=== PATIENT | male | born 1970 | race Caucasian/White ===

== ENCOUNTER 2024-05-16 12:21 | Emergency (ER) | payer OTHER, SELFPAY ==
[2024-05-16 12:32] VITALS: BP 124/95; PULSE 124; RESP 20; TEMP 36.8; O2SAT 97
--- NOTE | 2024-05-16 13:05 | ED_ITS ---
HPI - Extremity Problem General Chief complaint: Extremity Problem,Nontraumatic Stated complaint: Left Arm Pain/Right Shoulder Pain Time Seen by Provider: 05/16/24 13:11 Source: patient and RN notes reviewed Mode of arrival: ambulatory Limitations: no limitations History of Present Illness HPI Narrative: 53-year-old male presents with concern for left elbow pain. He denies injury or trauma. 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 He reports any pain with movement of the elbow, reports pain shoots down his arm. Denies swelling, redness, warmth, bruising. MD Complaint: extremity pain Related Data Home Medications ?Medication ?Instructions ?Recorded ?Confirmed ?Last Taken ?Type metoprolol tartrate 05/16/24 Unknown History omeprazole 05/16/24 Unknown History Allergies Allergy/AdvReac Type Severity Reaction Status Date / Time morphine Allergy Unknown Unknown Verified 05/16/24 12:37 Review of Systems Review of Systems: CONSTITUTIONAL: Denies malaise, chills, sweats, or fever. EYES: Denies visual changes, redness, or discharge. ENT: Denies rhinorrhea, congestion, sinus pain, otalgia and sore throat. CARDIOVASCULAR: Denies chest pain, palpitations, or edema. RESPIRATORY: Denies cough. Denies dyspnea. GASTROINTESTINAL: Denies abdominal pain, nausea, vomiting, diarrhea SKIN: Denies rash or itching. MUSCULOSKELETAL: Reports left elbow pain NEUROLOGIC: Denies headache. All systems reviewed & are unremarkable except as noted in HPI and below PMFSH Comments At time of signature, agree with nursing past medical, surgical, social and family history. There is no relevant family history pertinent to the presenting complaint Exam Narrative: GENERAL: Well-appearing, well-nourished, and in no acute distress. HEAD: Normocephalic, atraumatic. EYES: PERRLA, conjunctivae clear NECK: Supple. CHEST: Speaks in full sentences. No respiratory distress. HEART: Regular rate and rhythm. Normal and equal peripheral pulses. EXTREMITIES: Left upper extremity has normal strength and sensation. Exam limited due to patient cooperation with reported pain. No edema or ecchymosis. Normal sensation with sensitivity to light touch and pain. General elbow tenderness. No open wounds, no skin tenting, no devitalized tissue or atrophy, no trophic changes, no obvious deformity, alignment normal, nearby joints and structures intact. Distal pulses palpable and equal bilaterally, skin warm, dry, pink. Capillary refill less than 3 seconds. SKIN: Warm, dry, no rash. NEURO: Alert and oriented x3. PSYCH: Normal mood and affect Course Course Emergency Course: Patient is aware of diagnosis, understands and agrees to treatment plan. Anticipatory guidance given. Patient agrees to follow-up as directed and is aware of reasons to seek care at the emergency department. Portions of this record may have been created with voice recognition software Level of Care: Express Care Visit Vital Signs Vital signs: Vital Signs Temperature 98.3 F 05/16/24 12:32 Pulse Rate 124 H 05/16/24 12:32 Respiratory Rate 20 05/16/24 12:32 Blood Pressure 124/95 H 05/16/24 12:32 Pulse Oximetry 97 05/16/24 12:32 Oxygen Delivery Room Air 05/16/24 12:32 Temperature 98.3 F 05/16/24 12:32 Pulse Rate 124 H 05/16/24 12:32 Respiratory Rate 20 05/16/24 12:32 Blood Pressure 124/95 H 05/16/24 12:32 Pulse Oximetry 97 05/16/24 12:32 Oxygen Delivery Room Air 05/16/24 12:32 Reviewed. MDM - Extremity (Nontraumatic) MDM Narrative Medical decision making narrative: Patients pain is consistent with musculoskeletal etiology. No signs of neurological or vascular compromise on exam. Compartments and tissues are soft without signs of compartment syndrome. Pain is felt appropriate for further evaluation on an outpatient basis. Lab Data Attestation: I reviewed the patient's lab results. Critical Care Time Critical Care Time Critical Care Time: No Discharge Plan Discharge Clinical Impression: Elbow pain, left Patient Disposition: Home, Self-Care Condition: Stable Instructions: Musculoskeletal Pain (ED) Additional Instructions: Avoid activities that cause pain until the pain subsides. Ice to the area 20-30 minutes 4-6 times a day Elevate above heart Tylenol for lesser pain Ibuprofen regularly for the next 2-3 days for the inflammation Follow up with your primary care provider if the condition is not improving within 1 week. If the condition worsens with numbness, tingling, decrease sensation with weakness seek treatment in the emergency room immediately. Patient Language: Citizen Of [place] Prescriptions: No Action metoprolol tartrate omeprazole Follow-up/Referrals: UNKNOWN,DOCTOR [Primary Care Provider] - Time of Disposition: 13:21
--- OUTSIDE RECORDS SUMMARY | 2024-05-16 13:41 | XMS_ITS | Clinical Summary ---
Author Organization [facility] Address [address] [place] [address] Care Team Providers Care Purler Name Role Phone Niko Montes MD Primary Care Provider [phone] Allergies Active Allergy Reactions Criticality Noted Date Comments Morphine Vomiting 03/20/2018 Medications fluticasone propionate 50 MCG/ACT nasal spray 02/06/2018 Active lidocaine-prilo neil cream 04/28/2017 Active metoprolol tartrate 25 MG tablet 02/06/2018 Active NARCAN 4 MG/0.1ML nasal spray 05/04/2017 Active omeprazole 20 MG capsule 12/01/2017 Active fish oil 1000 MG Cap capsule Take 1,000 mg by mouth 2 (two) times daily. Active cetirizine 10 MG chewable tablet Chew 10 mg by mouth daily. Active atorvastatin 80 MG tablet 06/02/2018 Active methylPREDNISol one, SAE, (MEDROL DOSEPAK) 4 MG tablet 6 TABLETS ON DAY ONE, 5 TABLETS DAY TWO, 4 TABLETS DAY THREE, 3 TABLETS DAY FOUR, 2 TABLETS DAY FIVE, AND 1 TABLET DAY SIX 1 each 10/24/2021 Active Active Problems Problem Noted Date Diagnosed Date Chronic pain 03/20/2018 GERD (gastroesophageal reflux disease) 9 Anxiety 03/20/2018 Depression 03/20/2018 Hypertension 03/20/2018 Chronic bilateral low back pain with right-sided sciatica 03/20/2018 Allergic rhinitis, unspecifi ed seasonality, unspecified trigger 03/20/2018 Chronic tension-type headache, not intractable 0 03/20/2018 Primary osteoarthritis of both knees 03/20/2018 Bilateral carpal tunnel syndrome 03/20/2018 De Quervain's tenosynovitis, right 03/20/2018 Family History Medical History Relation Comments COPD Father Diabetes Father Heart Disease Father COPD Mother Diabetes Mother Relation Status Comments Brother Alive Daughter Alive Father Alive Mother Sister Alive Social History Tobacco Use Types Packs/Day Years Used Date Smoking Tobacco: Never Smokeless Tobacco: Never Alcohol Use Standard Drinks/Week Comments Yes 8.3 (1 standard drink = 0.6 oz p ure alcohol) on the weekend/socially PHQ-2 Answer Date Recorded PHQ-2 Score 6 02/18/2019 Sex and Gender Information Value Date Recorded Sex Assigned at Not on file Legal Sex Male 6:53 PM CDT Gender Identity Not on file Sexual Orientation Not on file Last Filed Vital Signs Vital Sign Reading Time Taken Comments Blood Pressure 143/98 10/24/2021 2:29 PM CDT Pulse 76 10/24/2021 2:29 PM CDT Temperature 36.4 C (97.6 F) 10/24/2021 2:29 PM CDT Respiratory Rate 20 10/24/2021 2:29 PM CDT Oxygen Saturation 99% 10/24/2021 2:29 PM CDT Inhaled Oxygen Concentration - - Weight 82.1 kg (181 lb) 10/24/2021 2:29 PM CDT Height 172.7 cm (5' 8 ) 10/24/2021 2:29 PM CDT Body Mass Index 27.52 10/24/2021 2:29 PM CDT Plan of Treatment Health Maintenance Due Date Last Done Comments Colorectal Cancer Screening Colonoscopy (10 Years) 1972 Annual Physical 09/01/1975 Hepatitis C 1990 DTaP, Tdap and Td Vaccines ( 1 - Tdap) 09/01/1991 Hepatitis B Vaccines (1 of 3 - 19+ 3-dose series) 09/01/1991 Zoster Vaccines (1 of 2) 2022 COVID-19 Vaccine (2023-2 5 season) 2023 Influenza Adult (#1) 2023 Meningococcal B Vaccine Aged Out No l onger eligible based on patient's age to complete this topic Meningococcal Vaccine Aged Out No evan nohemi eligible based on patient's age to complete this topic Pneumococcal Vaccine: Pediat rics (0 to 5 Years) and At-Risk Patients (6 to 64 Years) Aged Out No longer eligible b ased on patient's age to complete this topic RSV Immunizations Under 20 Months Aged Out No longer eligible based on patient's age to complete this topic Insurance [facility] [place] [address] Care Teams Purler Relationship Specialty Start Date End Date Niko Montes MD [address] [facility] [place] [address] PCP - General INTERNAL MEDICINE 10/24/21
--- OUTSIDE RECORDS SUMMARY | 2024-05-16 13:41 | XMS_ITS | Clinical Summary ---
Author Organization [facility] Address [address] [place] [address] Care Team Providers Care Wash Oil Pump Operator Name Role Phone Sam James MD Unavailable [phone] [facility], Sam Hubbard Primary Care Pro vider Allergies Active Allergy Reactions Criticality Noted Date Comments Morphine Vomiting Low Medications cetirizine 10 mg capsule Take 10 mg by mouth daily. Active metoprolol XL (TOPROL-XL) 25 mg 24 hr tablet Take 25 mg by mouth daily. Active fluticasone (FLONASE) 50 mcg/actuation nasal spray Administer 1 spray into each nostril daily. Active atorvastatin (LIPITOR) 80 mg tablet 0 Active omeprazole (PriLOSEC) 40 mg capsule 0 Active aspirin 325 mg enteric coated tabletIndications: Deep Vein Thrombosis Prevention Take 1 tablet (325 mg total) by mouth daily 42 tablet 0 Active ondansetron ODT (ZOFRAN-ODT) 4 mg disintegrating tabletIndications: nausea and vomiting Take 1 tablet (4 mg total) by mouth every 6 (six) hours as needed for nausea or vomiting 20 tablet 2 0 Active scopolamine 1 mg over 3 days patch [address] 1 patch on the skin every third day 4 patch 0 Active senna-docusate (PERICOLACE) 8.6-50 mgIndications:cons tipation Take 2 tablets by mouth 2 (two) times a day 60 tablet 2 0 Active traMADoL (ULTRAM) 50 mg tablet Take 1 tablet (50 mg total) by mouth every 6 (six) hours as needed for pain 40 tablet 0 Active metoprolol tartrate (LOPRESSOR) 25 mg immediate release tablet 0 Active methocarbamoL (ROBAXIN) 500 mg tablet Take 1 tablet (500 mg total) by mouth 4 (four) times a day as needed for muscle spasms 20 tablet 1 Active acetaminophen (TYLENOL) 500 mg tablet Take 2 tablets (1,000 mg total) by mouth every 8 (eight) hours as needed for pain for up to 20 doses 40 tablet 1 Active naproxen (NAPROSYN) 500 mg tablet Take 1 tablet (500 mg total) by mouth 2 (two) times a day with meals 30 tablet 1 Active Active Problems Problem Noted Date Diagnosed Date Carpal tunnel syndrome of right wrist 03/10/2021 Lateral epicondylitis of both elbows 09/01/2020 Arthritis of carpometacarpal (CMC) joint of righ t thumb 09/01/2020 Aftercare following left knee joint replacement surgery 12/20/2019 Allergic rhinitis 03/20/2018 Anxiety 03/20/2018 Chronic bilateral low back pain with right-sided sciatica 03/20/2018 Chronic pain 03/20/2018 Chronic tension-type headache, not intractable 0 03/20/2018 De Quervain's tenosynovitis, right 03/20/2018 Depression 03/20/2018 GERD (gastroesophageal reflux disease) 9 Hypertension 03/20/2018 Primary osteoarthritis of both knees 03/20/2018 Resolved Problems Problem Noted Date Diagnosed Date Resolved Date Primary osteoarthritis of left knee 11/22/2019 12/20/2019 Overview (11/22/2019): Added automatically from request for surgery [id number] Surgical History Surgery Date Site/Laterality Comments APPENDECTOMY LUMBAR FUSION KNEE ARTHROSCOPY JOINT REPLACEMENT 03/14/2019 - 03/13/2020 lt total knee Medical History Medical History Date Comments GERD (gastroesophageal reflux disease) Hypertension Hyperlipidemia Family History Medical History Relation Name Comments No Known Problems Father No Known Problems Mother Relation Name Status Comments Father Mother Social History Tobacco Use Types Packs/Day Years Used Date Smoking Tobacco: Never Smokeless Tobacco: Never Alcohol Use Standard Drinks/Week Comments Yes 0 (1 standard drink = 0.6 oz pur e alcohol) 3-4 drinks per week PHQ-2 Answer Date Recorded PHQ-2 Total Score (If total score is 3 or more points, staff should administer the PHQ-9) 0 12/05/2019 Sex and Gender Information Value Date Recorded Sex Assigned at Not on file Legal Sex Male 12:43 AM CHILD CARE WORKER Gender Identity Not on file Sexual Orientation Not on file Obstetrics History Last Filed Vital Signs Vital Sign Reading Time Taken Comments Blood Pressure 148/88 06/02/2021 2:47 PM CDT Pulse 56 06/02/2021 2:47 PM CDT Temperature 36.5 C (97.7 F) 02/19/2021 5:25 AM CHILD CARE WORKER Respiratory Rate 18 02/19/2021 5:25 AM CHILD CARE WORKER Oxygen Saturation 96% 02/19/2021 5:25 AM CHILD CARE WORKER Inhaled Oxygen Concentration - - Weight 83.9 kg (185 lb) 06/02/2021 2:47 PM CDT Height 170.2 cm (5' 7 ) 06/02/2021 2:47 PM CDT Body Mass Index 28.98 06/02/2021 2:47 PM CDT Plan of Treatment Health Maintenance Due Date Last Done Comments Hepatitis C Screening 1972 Prostate Cancer Screening-PSA 1972 DTaP/Tdap/Td Vaccine (1 - Tdap) 09/01/1983 Hepatitis B Screening 1990 Regular Well Visit/Exam 18-64 1990 Depression Screening 11/21/2020 11/22/2019 Zoster Vaccine (1 of 2) 2022 Influenza Vaccine (#1) 2023 Colon Cancer Screening-Colonoscopy 03/09/20282017 Pneumococcal vaccine <65 Aged Out No longer eligible based on patient's age to complete this topic Medical Devices Implanted Type Area Fast Food Delivery Driver Device Identifier Shelf Expiration Date Model / Serial / Lot [employer] 6195-1-001 Cement Bone Simplex Gentamicin High Viscosity 40gm - [id number] Implanted:Qty: 2 on 12/05/2019 by Sam James MD at [facility] Left: Knee [employer] 12/11/2020 6195-1-001 / / [id number] [employer] [id number] Attune Cemented Posterior Stabilize Knee Left 5 Component Femoral - [id number] Implanted:Qty: 1 on 12/05/2019 by Sam James MD at [facility] Left: Knee [employer] 02/10/2029 [id number] / / [id number] [employer] [id number] Attune S+ Cement Fix Bearing Knee 5 Baseplate Tibial - [id number] Implanted:Qty: 1 on 12/05/2019 by Sam James MD at [facility] Left: Knee [employer] 10/11/2029 [id number] / / [id number] [employer] [id number] Attune 35mm Cemented Medialize Knee Dome Patellar Aox Sterile - [id number] Implanted:Qty: 1 on 12/05/2019 by Sam James MD at [facility] Left: Knee [employer] 10/12/2023 [id number] / / [id number] [employer] [id number] Attune 7mm Posterior Stabilize Fix Bearing Knee 5 Insert Tibial - [id number] Implanted:Qty: 1 on 12/05/2019 by Sam James MD at [facility] Left: Knee [employer] 10/12/2023 [id number] / / [id number] Procedures Procedure Name Priority Date/Time Associated Diagnosis Comments COLONOSCOPY 03/09/2018 12:13 PM CHILD CARE WORKER from Last 3 Months or Most Recently Relevant to Health Maintenance Results * COLONOSCOPY (03/09/2018 12:13 PM CHILD CARE WORKER) Anatomical Region Laterality Modality Other Narrative Procedure Note Juan Knapp MD - 03/09/2018 12:13 PM CST [facility] End[facility] Patient Name: Ean Salmon Procedure Date: 03/09/2018 12:13PM Date of : 1970 Admit Type: Outpatient Age: 47 Gender: Male Note Status: Finalized Attending MD: Juan Knapp M.D. Procedure Date: 03/09/2018 Procedure: Colonoscopy Indications: Periumbilical abdominal pain, Constipation Providers: Juan Knapp M.D., Shin Schwab(Anesthesia Staff), Familia Ferrell RN Referring MD: Cortney Vaughan MD Medicines: Propofol per Anesthesia Complications: No immediate complications. Estimated Blood Loss: Estimated blood loss: none. Procedure: Pre-Anesthesia Assessment: - Prior to the procedure, a History and Physical was performed, and patient medications and allergieswere reviewed. The patient is competent. The risks and benefits of the procedure and the sedation optionsand risks were discussed with the patient. All questions were answered and informed consent was obtained. Patient identification and proposed procedure were verified by the physician, the nurse and the anesthesiologist in the pre-procedure area. Mental Status Examination: alert and oriented. Airway Examination: normal oropharyngeal airway and neck mobility. Respiratory Examination: clear to auscultation. CV Examination: normal. Prophylactic Antibiotics: The patient does not requireprophylactic antibiotics. Prior Anticoagulants: The patient has taken no previous anticoagulant or antiplateletagents. ASA Grade Assessment: II - A patient with mildsystemic disease. After reviewing the risks and benefits, the patient was deemed in satisfactory condition toundergo the procedure. The anesthesia plan was to usemoderate sedation / analgesia (conscious sedation).Immediately prior to administration of medications, the patientwas re-assessed for adequacy to receive sedatives. The heart rate, respiratory rate, oxygen saturations,blood pressure, adequacy of pulmonary ventilation, and response to care were monitored throughout the procedure. The physical status of the patient was re-assessed after the procedure. - The risks and benefits of the procedure and the sedation options and risks were discussed with the patient. All questions were answered and informed consent was obtained. After I obtained informed consent, the scope waspassed under direct vision. Throughout the procedure, the patient's blood pressure, pulse, and oxygensaturations were monitored continuously. The scope was passedunder direct vision. The Colonoscope [id number]-Q180 [id number] introduced through the anus and advanced to the the cecum, identified by appendiceal orifice andileocecal valve. The colonoscopy was performed without difficulty. The patient tolerated the procedurewell. The quality of the bowel preparation was excellent.The bowel preparation used was GoLYTELY. Findings: The perianal and digital rectal examinations were normal. The entire examined colon appeared normal. Impression: - The entire examined colon is normal. - No specimens collected. Recommendation: - Discharge patient to home (ambulatory). - Resume previous diet. - Continue present medications. - Repeat colonoscopy in 10 years per protocol. - Return to primary care physician in 4 weeks. Procedure Code(s): --- Professional --- 23261, Colonoscopy, flexible; diagnostic, including collection of specimen(s) by brushing or washing,when performed (separate procedure) Diagnosis Code(s): --- Professional --- R10.33, Periumbilical pain K59.00, Constipation, unspecified CPT copyright 2017 [employer]. All rights reserved. The codes documented in this report are preliminary and upon cook pie reviewmay be revised to meet current compliance requirements. Nakita Knapp Juan Knapp M.D. 03/09/2018 12:39:44 PM This report has been electronically signed by the physician. Number of Addenda: 0 Note Initiated On: 03/09/2018 12:13 PM Juan Knapp MD ENDOSCOPY PROCEDURES Final Result from Last 3 Months or Most Recently Relevant to Health Maintenance Insurance [facility] Advance Directives For more information, please contact: [phone] * Full Code (Latest Code Status on File) Date Activated Date Inactivated Comments 12/05/2019 5:38 PM 12/06/2019 7:59 PM Care Teams Wash Oil Pump Operator Relationship Specialty Start Date End Date [facility], Sam Hubbard [address] [place] [address] PCP - General Genetics 10/02/20 Sam James MD Surgeon Orthopedic Surgery 12/06/19
--- OUTSIDE RECORDS SUMMARY | 2024-05-16 13:41 | XMS_ITS | Clinical Summary ---
Author Organization [facility] Care Team Providers Care Snow Removal Supervisor Name Role Phone Unavailable Primary Care Provider Unavailabl e Allergies Active Allergy Reactions Criticality Noted Date Comments Morphine Vomiting Low 03/20/2018 Medications atorvastatin (LIPITOR) 80 MG Tablet Take 80 mg by mouth nightly. 06/02/2018 Active metoprolol tartrate (LOPRESSOR) 25 MG Tablet Take 25 mg by mouth 2 times daily. 02/06/2018 Active omeprazole (PriLOSEC) 40 MG CAPSULE DELAYED RELEASE Take 40 mg by mouth daily. 08/22/2019 Active Social History Tobacco Use Types Packs/Day Years Used Date Smoking Tobacco: Never Smokeless Tobacco: Never Tobacco Cessation:Counseling Given: Not Answered Alcohol Use Standard Drinks/Week Comments Not Currently 0 (1 standard drink = 0.6 oz pur e alcohol) Sex and Gender Information Value Date Recorded Sex Assigned at Not on file Legal Sex Male 9:56 PM CDT Gender Identity Not on file Sexual Orientation Not on file Last Filed Vital Signs Vital Sign Reading Time Taken Comments Blood Pressure 124/74 05/27/2023 1:46 PM CDT Pulse 61 05/27/2023 1:46 PM CDT Temperature 36.2 C (97.1 F) 05/27/2023 1:46 PM CDT Respiratory Rate 16 05/27/2023 1:46 PM CDT Oxygen Saturation 98% 05/27/2023 1:46 PM CDT Inhaled Oxygen Concentration - - Weight 83.9 kg (185 lb) 05/27/2023 1:46 PM CDT Height 170.2 cm (5' 7 ) 05/27/2023 1:46 PM CDT Body Mass Index 28.98 05/27/2023 1:46 PM CDT Plan of Treatment Not on file
--- OUTSIDE RECORDS SUMMARY | 2024-05-16 13:41 | XMS_ITS | Referral Summary ---
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 Gender Identity Not on file Sexual Orientation Not on file Last Filed Vital Signs Vital Sign Reading Time Taken Comments Blood Pressure 148/88 06/02/2021 2:47 PM CDT Pulse 56 06/02/2021 2:47 PM CDT Temperature 36.5 C (97.7 F) 02/19/2021 5:25 AM HEEL BURNISHER Respiratory Rate 18 02/19/2021 5:25 AM HEEL BURNISHER Oxygen Saturation 96% 02/19/2021 5:25 AM HEEL BURNISHER Inhaled Oxygen Concentration - - Weight 83.9 kg (185 lb) 06/02/2021 2:47 PM CDT Height 170.2 cm (5' 7 ) 06/02/2021 2:47 PM CDT Body Mass Index 28.98 06/02/2021 2:47 PM CDT Plan of Treatment Not on file Medical Devices Implanted Type Area Lunch Counter Manager Device Identifier Shelf Expiration Date Model / Serial / Lot [employer] 6195-1-001 Cement Bone Simplex Gentamicin High Viscosity 40gm - [id number] Implanted:Qty: 2 on 12/05/2019 by Sam James MD at [facility] Left: Knee [employer] 12/11/2020 6195-1-001 / / [id number] [employer] [id number] Attune Cemented Posterior Stabilize Knee Left 5 Component Femoral - [id number] Implanted:Qty: 1 on 12/05/2019 by Sam James MD at [facility] Left: Knee [employer] 02/10/2029 [id number] / / [id number] [employer] [id number] Attune S+ Cement Fix Bearing Knee 5 Baseplate Tibial - [id number] Implanted:Qty: 1 on 12/05/2019 by Sam James MD at [facility] Left: Knee [employer] 10/11/2029 [id number] / / [id number] [employer] [id number] Attune 35mm Cemented Medialize Knee Dome Patellar Aox Sterile - [id number] Implanted:Qty: 1 on 12/05/2019 by Sam James MD at [facility] Left: Knee [employer] 10/12/2023 [id number] / / [id number] [employer] [id number] Attune 7mm Posterior Stabilize Fix Bearing Knee 5 Insert Tibial - [id number] Implanted:Qty: 1 on 12/05/2019 by Sam James MD at [facility] Left: Knee [employer] 10/12/2023 [id number] / / [id number] Procedures Procedure Name Priority Date/Time Associated Diagnosis Comments COLONOSCOPY 03/09/2018 12:13 PM HEEL BURNISHER from Last 3 Months or Most Recently Relevant to Health Maintenance Results * COLONOSCOPY (03/09/2018 12:13 PM HEEL BURNISHER) Anatomical Region Laterality Modality Other Narrative Procedure Note Juan Knapp MD - 03/09/2018 12:13 PM CST [facility] Endoscopy [facility] Patient Name: Ean Salmon Procedure [...] passedunder direct vision. The Colonoscope PCF-Q180 [place] [id number] introduced through the anus and advanced to [...] 4 weeks. Procedure Code(s): --- Professional --- 96108, Colonoscopy, flexible; diagnostic, including collection of specimen(s) by brushing or washing,when performed (separate procedure) Diagnosis Code(s): --- Professional --- R10.33, Periumbilical pain K59.00, Constipation, unspecified CPT copyright 2017 [employer]. All rights reserved. The codes documented in this report are preliminary and upon nonprofit manager reviewmay be revised to meet current compliance requirements. Nakita Knapp Juan Knapp M.D. 03/09/2018 12:39:44 PM This report has been electronically signed by the physician. Number of Addenda: 0 Note Initiated On: 03/09/2018 12:13 PM Juan Knapp MD ENDOSCOPY PROCEDURES Final Result from Last 3 Months or Most Recently Relevant to Health Maintenance Insurance [facility] Advance Directives For more information, please contact: [phone] * Full Code (Latest Code Status on File) Date Activated Date Inactivated Comments 12/05/2019 5:38 PM 12/06/2019 7:59 PM Care Teams Extractions Technician Relationship [facility] [address] [place] [id number] PCP - General Genetics 10/02/20 Sam James MD Surgeon Orthopedic Surgery 12/06/19
== END 2024-05-16 13:30 | disposition home or self-care (01) ==
PROVIDERS: Emergency Provider Nurse Practitioner
DX: M25.522 Pain in left elbow (principal); I10 Essential (primary) hypertension
CPT/HCPCS: 99202; A4565; G0463